=== PATIENT | female | born 1980 | race American Indian/Alaskan Native ===

== ENCOUNTER 2017-08-03 09:06 | Emergency (ER) | payer OTHER ==
--- NOTE | 2017-08-03 10:15 | Emergency Department Report ---
ED HPI - General Chief complaint: Vaginal Bleeding Stated complaint: VAGINAL BLEEDING/ Time Seen by Provider: 08/03/17 10:03 Source: patient Mode of arrival: Ambulatory Limitations: No Limitations - History of Present Illness Initial comments: This is a 37-year-old female nontoxic, well nourished in appearance, no acute signs of distress presents to the ED with c/o of vaginal bleeding x1 day. Patient stated she is about 8 weeks . Patient stated vaginal bleeding occured on 2 times yesterday and returned today x1 time. Patient denies any dizziness, fever, chills, headache, nausea, vomiting, back pain, urinary symptoms, chest pain, shortness of breathe, numbness or tingling. Patient denies any abdominal pain. Patient denies any allergies or PMH. MD Complaint: vaginal bleeding -: days(s) (1) Radiation: none Severity scale (0 -10): 0 Improves with: none Worsens with: none Associated symptoms: vaginal bleeding. denies: nausea/vomiting, vaginal discharge, abdominal pain, dysuria, headache, vision changes, malaise, dysparuenia, rash, seizure, shortness of breath, syncope, weakness Vaginal bleeding: light :: Yes Number of weeks : 8 Pre- care: none - Related Data : 3 Para: 5 Allergies Allergy/AdvReac Type Severity Reaction Status Date / Time No Known Allergies Allergy Unverified 08/03/17 09:19 ED Review of Systems ROS: Stated complaint: VAGINAL BLEEDING/ Other details as noted in HPI Constitutional: denies: chills, fever Eyes: denies: eye pain, eye discharge, vision change ENT: denies: ear pain, throat pain Respiratory: denies: cough, shortness of breath, wheezing Cardiovascular: denies: chest pain, palpitations Endocrine: no symptoms reported Gastrointestinal: denies: abdominal pain, nausea, diarrhea Genitourinary: denies: urgency, dysuria, discharge Musculoskeletal: denies: back pain, joint swelling, arthralgia Skin: denies: rash, lesions Neurological: denies: headache, weakness, paresthesias Psychiatric: denies: anxiety, depression Hematological/Lymphatic: denies: easy bleeding, easy bruising ED Past Medical Hx - Past Medical History Previous Medical History?: No - Surgical History Past Surgical History?: Yes - Social History Smoking Status: Never Smoker Substance Use Type: None ED Physical Exam - General Limitations: No Limitations General appearance: alert, in no apparent distress - Head Head exam: Present: atraumatic, normocephalic - Eye Eye exam: Present: normal appearance Pupils: Present: normal accommodation - ENT ENT exam: Present: normal exam, mucous membranes moist - Neck Neck exam: Present: normal inspection, full ROM. Absent: tenderness, meningismus, lymphadenopathy - Respiratory Respiratory exam: Present: normal lung sounds bilaterally. Absent: respiratory distress, wheezes, rales, rhonchi, stridor, chest wall tenderness, accessory muscle use, decreased breath sounds, prolonged expiratory - Cardiovascular Cardiovascular Exam: Present: regular rate, normal rhythm, normal heart sounds. Absent: bradycardia, tachycardia, irregular rhythm, systolic murmur, diastolic murmur, rubs, gallop - GI/Abdominal GI/Abdominal exam: Present: soft, normal bowel sounds. Absent: distended, tenderness, guarding, rebound, rigid, diminished bowel sounds - Rectal Rectal exam: Present: deferred - Extremities Exam Extremities exam: Present: normal inspection, full ROM, normal capillary refill - Back Exam Back exam: Present: normal inspection, full ROM - Neurological Exam Neurological exam: Present: alert, oriented X3, normal gait - Psychiatric Psychiatric exam: Present: normal affect, normal mood - Skin Skin exam: Present: warm, dry, intact, normal color. Absent: rash ED Course Vital Signs 08/03/17 09:20 Temperature 99.1 F Pulse Rate 93 H Respiratory 18 Rate Blood Pressure 156/93 O2 Sat by Pulse 100 Oximetry - Reevaluation(s) Reevaluation #1: 08/03/17 10:16 Patient is speaking in full sentences with no signs of distress noted. ED Medical Decision Making - Lab Data Result diagrams: 08/03/17 10:13 08/03/17 10:13 - Medical Decision Making This is a 37-year-old female presents with threatened miscarriage. Patient is stable and was examined by me. Normal abdominal exam. US OB obtained and dictated by the radiologist. Quantative serum test obtained. Patient notified of the US report with no questions noted by the patient. Patient was instructed to return in 2 days to follow up with a CODING ASSISTANT or to emergency room for a reevaluation of serum quantative test with possible ultrasound. RH factor positive. Labs within normal limits. Patient was referred to Follow-up with a CODING ASSISTANT in 3-5 days or if symptoms worsen and continue return to emergency room as soon as possible. At time of discharge, the patient does not seem toxic or ill in appearance. No acute signs of distress noted. Patient agrees to discharge treatment plan of care. No further questions noted by the patient. Critical care attestation.: If time is entered above; I have spent that time in minutes in the direct care of this critically ill patient, excluding procedure time. ED Disposition Clinical Impression: Threatened miscarriage Disposition: DC- TO HOME OR SELFCARE Is pt being admited?: No Does the pt Need Aspirin: No Condition: Stable Instructions: Threatened Miscarriage (ED) Additional Instructions: Return to the ED in 48 hours for a repeat HCG quantitative test and possible ultrasound. Follow-up with a CODING ASSISTANT doctor in 2 days or if symptoms worsen and continue return to emergency room as soon as possible. Referrals: PRIMARY CAREMD [Primary Care Provider] - 3-5 Days ISABELLE ARTEAGA MD [Staff Physician] - 3-5 Days [facility] [Provider Group] - 3-5 Days [facility] [Outside] - 3-5 Days Forms: Work/School Release Form(ED)
[2017-08-03 10:43] LABS: Bilirubin,Urine NEG (Negative); Blood,Urine LG (Negative); Color,Urine Yellow (Yellow); Protein,Urine <15 mg/dL mg/dL (Negative); Urobilinogen,Urine < 2.0 mg/dL (<2.0)
[2017-08-03 10:44] LABS: Basophils % (Auto) 0.9 % (0.0-1.8); Eosinophils % (Auto) 0.5 % (0.0-4.3); Hematocrit 34.9 % (30.3-42.9); Hemoglobin 11.8 gm/dl (10.1-14.3); Lymphocytes # (Auto) 1.6 K/mm3 (1.2-5.4); Lymphocytes % (Auto) 31.2 % (13.4-35.0); Mean Corpuscular HGB Conc 34 % (30-34); Mean Corpuscular Hemoglobin 27 pg (28-32); Mean Corpuscular Volume 80 fl (79-97); Monocytes # (Auto) 0.5 K/mm3 (0.0-0.8); Monocytes % (Auto) 9.7 % (0.0-7.3); Platelet Count 218 K/mm3 (140-440); Red Blood Count 4.38 M/mm3 (3.65-5.03); Red Cell Distribution Width 14.4 % (13.2-15.2)
[2017-08-03 11:00] LABS: BUN/Creatinine Ratio 9; Blood Urea Nitrogen 6 mg/dL (7-17); Calcium 8.9 mg/dL (8.4-10.2); Hemolysis Index 5
--- NOTE | 2017-08-03 12:05 | Ultrasound Report ---
ULTRASOUND OB LESS THAN 14 WEEKS FETUS ULTRASOUND OB TRANSVAGINAL History: Vaginal bleeding during . Beta hCG level 209.2. Technique: Transabdominal and transvaginal ultrasound imaging. Findings: The uterus measures 11 x 7 x 6 cm. There is a large submucosal fibroid in the posterior wall measuring up to 6.3 cm in diameter. The endometrium is displaced anteriorly or measures 13 mm on the transvaginal images. No intrauterine is visualized. The right ovary measures 2.7 x 2.1 x 2.7 cm. The right ovary contains a complex area measuring 1.9 cm in greatest diameter which may represent a corpus luteum cyst. Left ovary measures 2.7 x 1.2 x 2.8 cm and demonstrates no focal abnormality. No pelvic fluid collection is identified. Impression: No intrauterine is visualized at this time. This could represent a very early . Please note that spontaneous or ectopic are not excluded. Close interval followup is recommended.
[2017-08-03 12:34] VITALS: BP 142/87
== END 2017-08-03 12:34 | disposition home or self-care (01) ==
LOC: ED 09:06
DX: O20.0 Threatened abortion (principal); Z3A.11 11 weeks gestation of pregnancy
CPT/HCPCS: 36415; 76801; 76817; 80048; 81001; 84702; 85025; 86850; 86900; 86901

== ENCOUNTER 2017-12-27 14:07 | Emergency (ER) | payer SELFPAY ==
--- NOTE | 2017-12-27 14:42 | Emergency Department Report ---
ED Female HPI - General Chief complaint: Vaginal Bleeding Stated complaint: [id number] WKS Time Seen by Provider: 12/27/17 14:33 Source: patient Mode of arrival: Ambulatory Limitations: No Limitations - History of Present Illness Initial comments: Patient is 37 years old female, 5 para 3 with one miscarriage. Patient presented to the ER complaining of vaginal bleeding started 1 hour. Patient also complaining of lower abdominal cramping. Patient stated that she follow up with doctor Per and she had a history of cervical cerclage before. She stated that she talk to Dr. Albarado about it today and he told her that he is probably do that after she is 16 weeks. Patient denied any dizziness, chest pain or shortness of breath. No headache. MD Complaint: vaginal bleeding -: hour(s) Severity scale (0 -10): 3 Quality: cramping - Related Data Allergies Allergy/AdvReac Type Severity Reaction Status Date / Time No Known Allergies Allergy Unverified 08/03/17 09:19 ED Review of Systems ROS: Stated complaint: [id number] WKS Other details as noted in HPI Comment: All other systems reviewed and negative Constitutional: denies: chills, fever Respiratory: denies: cough, orthopnea, shortness of breath, SOB with exertion, SOB at rest, wheezing Cardiovascular: denies: chest pain, palpitations Gastrointestinal: denies: abdominal pain, nausea, vomiting, diarrhea, constipation, hematemesis, melena, hematochezia Genitourinary: denies: urgency, dysuria, frequency, hematuria, discharge Neurological: denies: headache, weakness, numbness, abnormal gait ED Past Medical Hx - Past Medical History Previous Medical History?: Yes Additional medical history: Incompetent cervix, Vaginal delivery x3 - Surgical History Past Surgical History?: No - Social History Smoking Status: Never Smoker Substance Use Type: None ED Physical Exam - General Limitations: No Limitations General appearance: alert, in no apparent distress - Head Head exam: Present: atraumatic, normocephalic, normal inspection - Eye Eye exam: Present: normal appearance, PERRL - ENT ENT exam: Present: normal exam, normal orophraynx, mucous membranes moist - Neck Neck exam: Present: normal inspection, full ROM. Absent: tenderness, meningismus, lymphadenopathy, thyromegaly - Respiratory Respiratory exam: Present: normal lung sounds bilaterally. Absent: respiratory distress, wheezes, rales, rhonchi, stridor, chest wall tenderness, accessory muscle use, decreased breath sounds, prolonged expiratory - Cardiovascular Cardiovascular Exam: Present: regular rate, normal rhythm, normal heart sounds - GI/Abdominal GI/Abdominal exam: Present: soft, normal bowel sounds. Absent: distended, tenderness, guarding, rebound, rigid, diminished bowel sounds, hypoactive bowel sounds, organomegaly, mass, bruit, pulsatile mass, hernia - Extremities Exam Extremities exam: Present: normal inspection, full ROM, normal capillary refill - Back Exam Back exam: Present: normal inspection, full ROM. Absent: CVA tenderness (R), CVA tenderness (L), muscle spasm, paraspinal tenderness, vertebral tenderness, rash noted - Neurological Exam Neurological exam: Present: alert, oriented X3, CN II-XII intact, normal gait, reflexes normal - Skin Skin exam: Present: warm, intact, normal color ED Course Vital Signs 12/27/17 12/27/17 12/27/17 14:11 14:46 15:11 Temperature 98.2 F Pulse Rate 103 H 80 Respiratory 20 19 19 Rate Blood Pressure 171/86 Blood Pressure 136/73 [Right] O2 Sat by Pulse 100 99 100 Oximetry ED Medical Decision Making - Lab Data Result diagrams: 12/27/17 15:30 - Radiology Data Radiology results: report reviewed Referring Physician: CONNOR WATKINS Patient Name: LEANNA LANGE Date of : 1980 Sex: Female Report Date: 2017-12-27 Report Status: Finalized Findings [address] [address] Ultrasound Report Signed Patient: LEANNA LANGE MR#: [id number] : 1980 Acct:[id number] Age/Sex: 37 / F ADM Date: 12/27/17 Loc: ED Attending Dr: Ordering Physician: CONNOR WATKINS Date of Service: 12/27/17 Procedure(s): US OB transvaginal Accession Number(s): [id number] cc: CONNOR WATKINS FINAL REPORT EXAM: US OB TRANSVAGINAL HISTORY: ABDOMINAL PAIN , vaginal bleeding, history of incompetent cervix TECHNIQUE: Two images of the cervix using TRANSVAGINAL technique PRIORS: Ob ultrasound 12/27/2017 FINDINGS: Cervix is closed with 3.63 cm length. IMPRESSION: Closed cervix with 3.63 cm length Transcribed By: CHIQUIS Dictated By: CARIN LORENZ MD Electronically Authenticated By: CARIN LORENZ MD Signed Date/Time: 12/27/17 1724 Referring Physician: CONNOR WATKINS Patient Name: LEANNA LANGE Date of : 1980 Sex: Female Report Date: 2017-12-27 Report Status: [place] [address] Ultrasound Report Signed Patient: LEANNA LANGE MR#: [id number] : 1980 Acct:[id number] Age/Sex: 37 / F ADM Date: 12/27/17 Loc: ED Attending Dr: Ordering Physician: CONNOR WATKINS Date of Service: 12/27/17 Procedure(s): US OB >= 14 weeks Fetus Accession Number(s): [id number] cc: CONNOR WATKINS FINAL REPORT EXAM: US OB gt; = 14 WEEKS FETUS HISTORY: vaginal bleeding, 16 wks TECHNIQUE: Ultrasound evaluation of the gravid uterus PRIORS: None. FINDINGS: There is a single viable intrauterine with documented cardiac activity. Multiple ultrasound measurements are made to determine a composite gestational age. ratios are not calculated. There is no evidence of placenta previa or abruption. The maternal cervix is closed. The quantity of visualized amniotic fluid appears grossly normal. No sonographic abnormality in the visualized portion of the anatomy. Heart rate: 162 beats per minute position: Transverse with head to the maternal left Placental position: Anterior, grade 0 Maternal cervix length: 3.6cm Ultrasound estimated gestational age: 14 weeks 1 day Ultrasound estimated delivery date: 06/26/2018 LMP estimated gestational age: 12 week 6 days LMP estimated delivery date: 07/05/2018 In the posterior aspect of the lower uterine segment and cervix, there is a smoothly marginated nonspecific hypoechoic heterogeneous mass measuring 7.9 x 5.3 x 6.8 cm. This is suggestive of a subserosal fibroid. It is positioned inferior to the level of the gestational sac. Nonspecific simple appearing cyst in left ovary measures 3.8 cm. This may be a corpus luteum. IMPRESSION: Single viable intrauterine with the above parameters Heterogeneous hypoechoic mass posterior to the cervix and lower uterine segment suggestive of large subserosal fibroid Simple appearing cyst in left ovary may be a corpus luteum Transcribed By: CHIQUIS Dictated By: CARIN LORENZ MD Electronically Authenticated By: CARIN LORENZ MD Signed Date/Time: 12/27/171729 DD/ 29 TD/TT: 12/27/171729 DD/ 23 TD/TT: 12/27/171723 - Medical Decision Making Patient is 37 years old female, 5 para 3 with one miscarriage. Patient presented to the ER complaining of vaginal bleeding started 1 hour. Patient also complaining of lower abdominal cramping. Patient stated that she follow up with doctor Per and she had a history of cervical cerclage before. She stated that she talk to Dr. Albarado about it today and he told her that he is probably do that after she is 16 weeks. Patient denied any dizziness, chest pain or shortness of breath. No headache. Ultrasound showed a 14 weeks single fetus, viable. Cervix is closed and at 3.8 cm length. I discussed the patient is Dr. Arun Albarado he stated that patient can be discharged home and to follow-up with him in the office in the next 2-3 days to schedule her cervical cerclage. Critical care attestation.: If time is entered above; I have spent that time in minutes in the direct care of this critically ill patient, excluding procedure time. ED Disposition Clinical Impression: Vaginal bleeding during Disposition: DC-01 TO HOME OR SELFCARE Is pt being admited?: No Condition: Stable Instructions: Abdominal Pain in (ED) Referrals: PRIMARY CARE, [Primary Care Provider] - 3-5 Days ARUN ALBARADO MD [Staff Physician] - 3-5 Days
[2017-12-27 15:51] LABS: Basophils % (Auto) 0.6 % (0.0-1.8); Eosinophils % (Auto) 0.5 % (0.0-4.3); Hematocrit 32.8 % (30.3-42.9); Hemoglobin 10.8 gm/dl (10.1-14.3); Lymphocytes # (Auto) 1.8 K/mm3 (1.2-5.4); Mean Corpuscular HGB Conc 33 % (30-34); Mean Corpuscular Hemoglobin 26 pg (28-32); Mean Corpuscular Volume 80 fl (79-97); Monocytes # (Auto) 0.8 K/mm3 (0.0-0.8); Monocytes % (Auto) 9.7 % (0.0-7.3); Platelet Count 243 K/mm3 (140-440); Red Blood Count 4.08 M/mm3 (3.65-5.03); Red Cell Distribution Width 14.4 % (13.2-15.2)
[2017-12-27 15:56] LABS: Bacteria,Urine 3+ /HPF (Negative); Bilirubin,Urine NEG (Negative); Blood,Urine LG (Negative); Color,Urine Yellow (Yellow); Mucus,Urine FEW /HPF; Protein,Urine <15 mg/dL mg/dL (Negative); Urobilinogen,Urine < 2.0 mg/dL (<2.0)
[2017-12-27 15:58] LABS: RBC,Urine > 182.0 /HPF (0.0-6.0)
--- NOTE | 2017-12-27 17:25 | Ultrasound Report ---
FINAL REPORT EXAM: US OB TRANSVAGINAL HISTORY: ABDOMINAL PAIN , vaginal bleeding, history of incompetent cervix TECHNIQUE: Two images of the cervix using TRANSVAGINAL technique PRIORS: Ob ultrasound 12/27/2017 FINDINGS: Cervix is closed with 3.63 cm length. IMPRESSION: Closed cervix with 3.63 cm length
--- NOTE | 2017-12-27 17:31 | Ultrasound Report ---
FINAL REPORT EXAM: US OB > = 14 WEEKS FETUS HISTORY: vaginal bleeding, 16 wks TECHNIQUE: Ultrasound evaluation of the gravid uterus PRIORS: None. FINDINGS: There is a single viable intrauterine with documented cardiac activity. Multiple ultrasound measurements are made to determine a composite gestational age. ratios are not calculated. There is no evidence of placenta previa or abruption. The maternal cervix is closed. The quantity of visualized amniotic fluid appears grossly normal. No sonographic abnormality in the visualized portion of the anatomy. Heart rate: 162 beats per minute position: Transverse with head to the maternal left Placental position: Anterior, grade 0 Maternal cervix length: 3.6cm Ultrasound estimated gestational age: 14 weeks 1 day Ultrasound estimated delivery date: 06/26/2018 LMP estimated gestational age: 12 week 6 days LMP estimated delivery date: 07/05/2018 In the posterior aspect of the lower uterine segment and cervix, there is a smoothly marginated nonspecific hypoechoic heterogeneous mass measuring 7.9 x 5.3 x 6.8 cm. This is suggestive of a subserosal fibroid. It is positioned inferior to the level of the gestational sac. Nonspecific simple appearing cyst in left ovary measures 3.8 cm. This may be a corpus luteum. IMPRESSION: Single viable intrauterine with the above parameters Heterogeneous hypoechoic mass posterior to the cervix and lower uterine segment suggestive of large subserosal fibroid Simple appearing cyst in left ovary may be a corpus luteum
[2017-12-27 18:03] VITALS: BP 125/67
== END 2017-12-27 18:51 | disposition home or self-care (01) ==
LOC: ED 14:07
DX: O46.92 Antepartum hemorrhage, unspecified, second trimester (principal); O26.892 Other specified pregnancy related conditions, second trimester; Z3A.16 16 weeks gestation of pregnancy
CPT/HCPCS: 36415; 76805; 76817; 81001; 84702; 85025; 86850; 86900; 86901

== ENCOUNTER 2018-06-03 14:02 | Inpatient (IN) | payer SELFPAY ==
[2018-06-03 16:14] LABS: Amorphous Crystals,Urine Few; Bacteria,Urine 2+ /HPF (Negative); Bilirubin,Urine NEG (Negative); Blood,Urine MOD (Negative); Color,Urine Yellow (Yellow); Mucus,Urine FEW /HPF; Urobilinogen,Urine < 2.0 mg/dL (<2.0)
[2018-06-03 16:57] LABS: Basophils % (Auto) 0.5 % (0.0-1.8); Eosinophils % (Auto) 0.4 % (0.0-4.3); Hematocrit 36.4 % (30.3-42.9); Hemoglobin 12.1 gm/dl (10.1-14.3); Lymphocytes # (Auto) 1.6 K/mm3 (1.2-5.4); Lymphocytes % (Auto) 23.9 % (13.4-35.0); Mean Corpuscular HGB Conc 33 % (30-34); Mean Corpuscular Volume 80 fl (79-97); Monocytes # (Auto) 0.6 K/mm3 (0.0-0.8); Monocytes % (Auto) 9.2 % (0.0-7.3); Red Blood Count 4.55 M/mm3 (3.65-5.03); Red Cell Distribution Width 15.1 % (13.2-15.2)
[2018-06-03 17:16] LABS: Alanine Aminotransferase 21 units/L (7-56); Albumin 3.2 g/dL (3.9-5); BUN/Creatinine Ratio 13; Blood Urea Nitrogen 8 mg/dL (7-17); Calcium 8.9 mg/dL (8.4-10.2); Hemolysis Index 29; Uric Acid 6.7 mg/dL (3.5-7.6)
[2018-06-03 17:50] LABS: Platelet Count 128 K/mm3 (140-440)
[2018-06-03] MEDS ORDERED: MAGNESIUM SULFATE 4GM/100ML 4 GM/100 ML BAG IV ONE (17:57)
[2018-06-03] MEDS ORDERED: APRESOLINE IV ONE (17:57)
--- NOTE | 2018-06-03 18:23 | History and Physical Report ---
History of Present Illness Date of examination: 06/03/18 Date of admission: 06/03/18 14:20 Chief complaint: Elevated BP's History of present illness: Pt is a EDC 07/05/18; EGA 35 3 weeks presents from the office fo BP management. BP in office 174/100 and pt denies headaches or blurred vision. She received insufficient care at [facility] since 16 weeks and presented for her 3rd visit today with BP 174/100. She denies history of chronic hypertension and previous was complicated by Eclampsia. records are available and GBS was done today. Past History Past Medical History: no pertinent history Past Surgical History: no surgical history Social history: no significant social history, - Obstetrical History Expected Date of Delivery: 07/05/18 Actual Gestation: 35 Week(s) 3 Day(s) : 6 Medications and Allergies Allergies Allergy/AdvReac Type Severity Reaction Status Date / Time No Known Allergies Allergy Unverified 08/03/17 09:19 Active Meds: Active Medications Magnesium Sulfate (Magnesium Sulfate 40gm/1000ml) 40 gm in 1,000 mls @ 50 m ls/hr IV DIRECT CURLY Review of Systems All systems: negative - Vital Signs Vital signs: Vital Signs Pulse BP 81 180/103 06/03/18 14:41 06/03/18 14:41 Temp Pulse Resp BP Pulse Ox 77 178/99 06/03/18 17:55 06/03/18 17:55 - Physical Exam Breasts: Positive: deferred Cardiovascular: Regular rate Lungs: Positive: Clear to auscultation Abdomen: Positive: normal appearance Genitourinary (Female): Positive: normal external genitalia Uterus: Positive: enlarged Extremities: Positive: normal - Obstetrical FHR: category 1 Uterine Contraction Monitor Mode: External Uterine Contraction Pattern: Absent Results Result Diagrams: 06/03/18 16:30 06/03/18 16:30 Abnormal lab results 06/03/18 06/03/18 06/03/18 Range/Units 15:45 16:30 16:30 MCH 27 L (28-32) pg Plt Count 128 L (140-440) K/mm3 [place] % (Auto) 9.2 H (0.0-7.3) % Sodium 133 L (137-145) mmol/L Carbon Dioxide 20 L (22-30) mmol/L Creatinine 0.6 L (0.7-1.2) mg/dL Glucose 109 H (65-100) mg/dL Alkaline Phosphatase 265 H (35-129) units/L Lactate Dehydrogenase 331 H (91-180) units/L Albumin 3.2 L (3.9-5) g/dL Urine WBC (Auto) 17.0 H (0.0-6.0) /HPF All other labs normal. Ultrasound: report reviewed (BPP 11/05; JAYJAY 11.1 with posterior fibroid 7.2 x 8.1 x 6.8cm) Assessment and Plan - Patient Problems (1) 35 weeks gestation of Onset Date: 06/03/18 Current Visit: Yes Status: Acute Plan to address problem: A: IUP @ 35 3/7 weeks Preeclampsia AMA Uterine fibroid P: Admit to L&D for BP management - Begin IV Magnesium sulfate, IV Hydralazine Obtain PIH labs and 24hr urine for protein Obtain APA consultation (2) Preeclampsia Onset Date: 06/03/18 Current Visit: Yes Status: Acute Qualifiers: Trimester: third trimester Qualified Code(s): O14.93 - Unspecified pre- eclampsia, third trimester
[2018-06-03] MEDS ORDERED: TYLENOL PO PRN (18:28)
[2018-06-03] MEDS ORDERED: ZOFRAN IV PRN (18:28)
[2018-06-03] MEDS ORDERED: COLACE PO PRN (18:28)
[2018-06-03] MEDS ORDERED: LACTATED RINGERS 1,000 ML ONE (18:29)
--- NOTE | 2018-06-03 19:39 | Ultrasound Report ---
PROCEDURE: US OB BPP WO NON-STRESS HISTORY: High blood pressures FINDINGS: Real-time ultrasound of the pelvis was performed by transabdominal technique. Biophysical p rofile was performed. These images demonstrate a live intrauterine gestation with biophysical profile of 8 out of 8. Amniot ic fluid index is 11.1 cm. The fetus lies in cephalic lie. cardiac activity is present 146 bpm. There is a posterior uterine leiomyoma, 7.2 x 8.1 x 6.8 cm which was previously measured on the ultra sound of December 27, 2017 at 7.9 x 5.3 x 6.8 cm. IMPRESSION: Biophysical profile 8 of 8 This document is electronically signed by Braxton Benoit MD., June 03 2018 07:37:23 PM ET
--- NOTE | 2018-06-03 19:39 | Ultrasound Report ---
PROCEDURE: US OB LIMITED HISTORY: high blood pressures FINDINGS: Real-time ultrasound of the pelvis was performed by transabdominal technique. Biophysical p rofile was performed. These images demonstrate a live intrauterine gestation with biophysical profile of 8 out of 8. Amniot ic fluid index is 11.1 cm. The fetus lies in cephalic lie. cardiac activity is present 146 bpm. There is a posterior uterine leiomyoma, 7.2 x 8.1 x 6.8 cm which was previously measured on the ultra sound of December 27, 2017 at 7.9 x 5.3 x 6.8 cm. IMPRESSION: Biophysical profile 8 of 8 This document is electronically signed by Braxton Benoit MD., June 03 2018 07:36:57 PM ET
[2018-06-03] MEDS: MAGNESIUM SULFATE 40GM/1000ML 40 GM/1,000 ML BAG IV SCH (22:40)
[2018-06-03] MEDS ORDERED: AMBIEN PO PRN (22:43)
[2018-06-04] MEDS: LACTATED RINGERS 1,000 ML IV SCH ×2 (03:07→16:46)
[2018-06-04] MEDS: PRENATAL VITAMIN PO SCH (11:00)
[2018-06-04] MEDS: NORMODYNE PO SCH ×2 (11:05→22:12)
--- NOTE | 2018-06-04 12:23 | Progress Note ---
Assessment and Plan - Patient Problems (1) 35 weeks gestation of Onset Date: 06/03/18 Current Visit: Yes Status: Acute Plan to address problem: A: IUP @ 35 4/7 weeks Preeclampsia AMA Uterine fibroid P: Continue BP management - Currently on IV Magnesium sulfate, IV Hydralazine Repeat PIH labs and 24hr urine for protein Awaiting APA consultation (2) Preeclampsia Onset Date: 06/03/18 Current Visit: Yes Status: Acute Qualifiers: Trimester: third trimester Qualified Code(s): O14.93 - Unspecified pre- eclampsia, third trimester Subjective - Subjective Date of service: 06/04/18 Principal diagnosis: IUP @ 35 4/7 weeks; Interval history: Pt is a EDC 07/05/18; EGA 35 4/7 weeks presented from the office fo BP management. BP in office 174/100 and pt denied headaches or blurred vision. She received insufficient care at [facility] since 16 weeks and presented for her 3rd visit yesterday with BP 174/100. She denies history of chronic hypertension and previous was complicated by Eclampsia. records are available and GBS was done yesterday. Today her BP is improved on Labetolol 200mg BID Patient reports: new complaints (nausea and vomiting), movement normal, no loss of fluid, no vaginal bleeding, no contractions Objective - Vital Signs Vital Signs: Vital Signs - 12hr 06/04/18 06/04/18 06/04/18 00:41 01:35 01:41 Temperature 97.6 F Pulse Rate 81 90 Respiratory 16 Rate Blood Pressure 145/83 145/68 O2 Sat by Pulse Oximetry 06/04/18 06/04/18 06/04/18 02:41 03:37 03:43 Temperature 97.2 F L Pulse Rate 89 87 Respiratory 18 Rate Blood Pressure 144/89 148/78 O2 Sat by Pulse Oximetry 06/04/18 06/04/18 06/04/18 04:41 05:42 06:42 Temperature Pulse Rate 83 90 81 Respiratory Rate Blood Pressure 144/70 157/72 158/78 O2 Sat by Pulse Oximetry 06/04/18 06/04/18 06/04/18 07:41 08:41 09:41 Temperature Pulse Rate 88 90 90 Respiratory Rate Blood Pressure 138/70 147/79 150/82 O2 Sat by Pulse Oximetry 06/04/18 06/04/18 06/04/18 10:41 11:05 11:54 Temperature Pulse Rate 95 H 95 H 88 Respiratory Rate Blood Pressure 148/82 148/82 132/75 O2 Sat by Pulse Oximetry 06/04/18 11:55 Temperature Pulse Rate 88 Respiratory Rate Blood Pressure O2 Sat by Pulse 99 Oximetry - Exam Abdomen: Present: normal appearance, soft Uterus: Present: normal FHR: category 1 Uterine Contraction Monitor Mode: External Uterine Contraction Pattern: Absent - Labs Labs: Abnormal Labs 06/03/18 06/03/18 06/03/18 15:45 16:30 16:30 MCH 27 L Plt Count 128 L [place] % (Auto) 9.2 H Sodium 133 L Carbon Dioxide 20 L Creatinine 0.6 L Glucose 109 H Alkaline Phosphatase 265 H Lactate Dehydrogenase 331 H Albumin 3.2 L Urine WBC (Auto) 17.0 H Laboratory Results - last 24 hr 06/03/18 06/03/18 06/03/18 15:45 16:30 16:30 WBC 6.7 RBC 4.55 Hgb 12.1 Hct 36.4 MCV 80 MCH 27 L MCHC 33 RDW 15.1 Plt Count 128 L Lymph % (Auto) 23.9 [place] % (Auto) 9.2 H Eos % (Auto) 0.4 Baso % (Auto) 0.5 Lymph # 1.6 [place] # 0.6 Eos # 0.0 Baso # 0.0 Seg Neutrophils % 66.0 Seg Neutrophils # 4.4 Sodium Potassium Chloride Carbon Dioxide Anion Gap BUN Creatinine Estimated GFR BUN/Creatinine Ratio Glucose Uric Acid Calcium Total Bilirubin AST ALT Alkaline Phosphatase Lactate Dehydrogenase Total Protein Albumin Albumin/Globulin Ratio Urine Color Yellow Urine Turbidity Slightly-cloudy Urine pH 6.0 Ur Specific [place] 1.013 Urine Protein 100 mg/dl Urine Glucose (UA) Neg Urine Ketones Neg Urine Blood Mod Urine Nitrite Neg Urine Bilirubin Neg Urine Urobilinogen < 2.0 Ur Leukocyte Esterase Lg Urine WBC (Auto) 17.0 H Urine RBC (Auto) 18.0 U Epithel Cells (Auto) 9.0 Urine Bacteria (Auto) 2+ Amorphous Crystals Few Urine Mucus Few Blood Type O POSITIVE Antibody Screen Negative 06/03/18 16:30 WBC RBC Hgb Hct MCV MCH MCHC RDW Plt Count Lymph % (Auto) [place] % (Auto) Eos % (Auto) Baso % (Auto) Lymph # [place] # Eos # Baso # Seg Neutrophils % Seg Neutrophils # Sodium 133 L Potassium 4.2 Chloride 100.7 Carbon Dioxide 20 L Anion Gap 17 BUN 8 Creatinine 0.6 L Estimated GFR > 60 BUN/Creatinine Ratio 13 Glucose 109 H Uric Acid 6.7 Calcium 8.9 Total Bilirubin 0.20 AST 27 ALT 21 Alkaline Phosphatase 265 H Lactate Dehydrogenase 331 H Total Protein 6.3 Albumin 3.2 L Albumin/Globulin Ratio 1.0 Urine Color Urine Turbidity Urine pH Ur Specific [place] Urine Protein Urine Glucose (UA) Urine Ketones Urine Blood Urine Nitrite Urine Bilirubin Urine Urobilinogen Ur Leukocyte Esterase Urine WBC (Auto) Urine RBC (Auto) U Epithel Cells (Auto) Urine Bacteria (Auto) Amorphous Crystals Urine Mucus Blood Type Antibody Screen
[2018-06-04] MEDS ORDERED: AMPICILLIN/NS 2 GM/100 ML 2 GM/100 ML BAG IV ONE (12:31)
--- NOTE | 2018-06-04 14:00 | Consultation ---
History of Present Illness Consult date: 06/04/18 Requesting physician: JACKELIN ARTEAGA Reason for consult: gestational hypertension History of present illness: Thank you for your recent consultation regarding the above named patient. As you are aware, this is a 37 year old para [id number] who is currently at 35 weeks As you are likely aware this is a patient that was sent to [facility] office due to elevated blood pressure. Patient indicates that she has NOT had elevated blood pressure during this but she did have preeclampsia with eclampsia in her first (see below) CURRENT PRESENTATION: Her pressures were in the range mildly elevated. HELLP labs obtained have been within normal limits She complains of ONGOING headache Her BP on admission was ~ 142/95. She has been given Labetalol presently. Patient completed a 24 hour urine is not available for review.. The patients most recent blood pressure ELEVATED. PAST OB HISTORY: 2000: at term. BW: uncertain. Complicated by preeclampsia and eclampsia. 2003: at term. BW: uncertain 2009: at term. BW: uncertain VTOP x 2. LABORATORY FINDINGS: SEE hospital chart. Past History Past Medical History: no pertinent history Past Surgical History: no surgical history - Obstetrical History : 6 Medications and Allergies Allergies Allergy/AdvReac Type Severity Reaction Status Date / Time No Known Allergies Allergy Unverified 08/03/17 09:19 Active Meds: Active Medications Acetaminophen (Tylenol) 650 mg PO Q4H PRN PRN Reason: Pain MILD(1-3)/Fever >100.5/FLORES Last Admin: 06/03/18 22:40 Dose: 650 mg Documented by: Docusate Sodium (Colace) 100 mg PO Q12H PRN PRN Reason: Constipation Magnesium Sulfate (Magnesium Sulfate 40gm/1000ml) 40 gm in 1,000 mls @ 50 mls/hr IV DIRECT CURLY Last Admin: 06/03/18 22:40 Dose: 2 gm/hr, 50 mls/hr Documented by: Lactated Ringer's (Lactated Ringers) 1,000 mls @ 125 mls/hr IV DIRECT CURLY Last Admin: 06/04/18 03:07 Dose: 125 mls/hr Documented by: Ampicillin Sodium (Ampicillin/Ns 1 Gm/50 Ml) 1 gm in 50 mls @ 100 mls/hr IV Q6HR CURLY; Protocol Labetalol HCl (Normodyne) 200 mg PO BID [facility] Last Admin: 06/04/18 11:05 Dose: 200 mg Documented by: Multivitamins/Iron/Calcium ( Vitamin) 1 each PO QDAY [facility] Last Admin: 06/04/18 11:00 Dose: 1 each Documented by: Ondansetron HCl (Zofran) 4 mg IV Q6H PRN PRN Reason: Nausea And Vomiting Zolpidem Tartrate (Ambien) 10 mg PO QHS PRN PRN Reason: Insomnia Last Admin: 06/04/18 00:14 Dose: 10 mg Documented by: - Vital Signs Vital signs: Vital Signs Pulse BP 81 180/103 06/03/18 14:41 06/03/18 14:41 Temp Pulse Resp BP Pulse Ox 97.2 F L 87 18 141/86 99 06/04/18 03:37 06/04/18 13:41 06/04/18 03:37 06/04/18 13:41 06/04/18 11:55 Results Result Diagrams: 06/03/18 16:30 06/03/18 16:30 Abnormal lab results 06/03/18 06/03/18 06/03/18 Range/Units 15:45 16:30 16:30 MCH 27 L (28-32) pg Plt Count 128 L (140-440) K/mm3 [place] % (Auto) 9.2 H (0.0-7.3) % Sodium 133 L (137-145) mmol/L Carbon Dioxide 20 L (22-30) mmol/L Creatinine 0.6 L (0.7-1.2) mg/dL Glucose 109 H (65-100) mg/dL Alkaline Phosphatase 265 H (35-129) units/L Lactate Dehydrogenase 331 H (91-180) units/L Albumin 3.2 L (3.9-5) g/dL Urine WBC (Auto) 17.0 H (0.0-6.0) /HPF All other labs normal. Assessment and Plan ASSESSMENT This is a 37 year old patient admitted to rule out preeclampsia. Severe preeclampsia based symptoms and blood pressure. Elevated blood pressure. Rule out preeclampsia with severe features. History of preeclampsia and eclampsia in first . Blood pressures and SYMPTOMS during observation are consistent with SEVERE PREECLAMPSIA. RECOMMENDATIONS: I've indicated to the patient that there are a number of medical complications which would require early delivery as a general rule for any gestation. I've indicated that unexplained vaginal bleeding, spontaneous labor, - induced hypertension and other complications would require delivery before an elective delivery. I've also indicated the recommendations from the [employer] published in the ACOG committee opinion number 560 regarding early term delivery. As well as recent studies from the Journal Obstetrics and Gynecology published in March [address] Rod et al indicate that for chronic hypertension with signs of severe preelcampsia should be delivered after 34 weeks of gestation. Based on the fact that this patient has preeclampsia and new onset neurological symptoms as well as elevated systolic blood pressure we would recommend DELIVERY of this rather than continued expectant management. REFERENCE: Medically indicated late- and early-term deliveries. Committee Opinion No. 560. [employer]. Obstet Gynecol 2013;121:84558. Would proceed as follows: * Given the current findings we would recommend delivery for this patient. * Agree with Labetalol for short term control of blood pressure. * Consider magnesium sulfate for eclampsia prophylaxis particularly due to past history of eclampsia. * At present; there is no indication for completion of the 24 hour urine. * In a patient with MILD preeclampsia we recommend DELIVERY at 37 weeks. * In a patient with SEVERE preeclampsia we recommend DELIVERY either AT DIAG NOSIS or at 34 weeks gestation. * Reference: REFERENCE: Medically indicated late- and early-term deliveries. Committee Opinion No. 560. [employer]. Obstet Gynecol 2013;121:61057. * Accordingly, we would recommend DELIVERY for this patient. * We would recommend augmentation / induction of labor with CS for a change in status or decompensation during the intrapartum period. Thank you for allowing us to participate in the care of this patient. We look forward to the opportunity to assist in her continued management. If you have any questions, we may be reached [phone] Sruthi Foreman M.D.
[2018-06-04 14:31] LABS: Alanine Aminotransferase 22 units/L (7-56); BUN/Creatinine Ratio 9; Blood Urea Nitrogen 6 mg/dL (7-17); Calcium 7.8 mg/dL (8.4-10.2); Hemolysis Index 9
[2018-06-04] MEDS: MAGNESIUM SULFATE 40GM/1000ML 40 GM/1,000 ML BAG IV SCH ×2 (16:53→22:12)
[2018-06-04] MEDS ORDERED: PITOCin/NS 30 UNIT/500ML 30 UNITS/500 ML BAG IV SCH (17:00)
[2018-06-04] MEDS ORDERED: APRESOLINE IV ONE (17:25)
[2018-06-04] MEDS ORDERED: PEPCID IV SCH (17:49)
[2018-06-04] MEDS ORDERED: REGLAN IV SCH (17:49)
[2018-06-04] MEDS ORDERED: BICITRA PO SCH (17:49)
--- NOTE | 2018-06-04 17:49 | Event Note ---
Date: 06/04/18 [facility] consultation note reviewed with pt. She desires a C Section instead of pitocin induction of labor. Will proceed with a Primary C Section for Severe Preeclampsia.
[2018-06-04] MEDS ORDERED: ANCEF/STERILE WATER 2 GM/20 ML 2 GM/20 ML SYRINGE IV NR (18:00)
[2018-06-04] MEDS ORDERED: PITOCin/NS 20 UNIT/1000ML DRIP 20 UNITS/1,000 ML BAG IV SCH (18:00)
[2018-06-04] MEDS ORDERED: LACTATED RINGERS 1,000 ML IV SCH (18:00)
[2018-06-04] MEDS ORDERED: AMPICILLIN/NS 1 GM/50 ML 1 GM/50 ML BAG IV SCH (18:00)
--- NOTE | 2018-06-04 18:17 | Anesthesia Consultation ---
Anesthesia Consult and Med Hx Date of service: 06/04/18 - Airway Anesthetic Teeth Evaluation: Good ROM Head & Neck: Adequate Mental/Hyoid Distance: Adequate Mallampati Class: Class I Intubation Access Assessment: Good - Pulmonary Exam CTA: Yes - Cardiac Exam Cardiac Exam: RRR - Pre-Operative Health Status ASA Pre-Surgery Classification: ASA3 Proposed Anesthetic Plan: Epidural - Pre-Anesthesia Comment Pre-Anesthesia Comments: Pre-eclamptic - Pulmonary Hx Smoking: No Hx Asthma: No COPD: No Hx Pneumonia: No - Cardiovascular System Hx Hypertension: No - Central Nervous System Hx Seizures: No Hx Psychiatric Problems: No - Endocrine Hx Renal Disease: No Hx End Stage Renal Disease: No Hx Insulin Dependent Diabetes: No Hx Non-Insulin Dependent Diabetes: No Hx Hypothyroidism: No Hx Hyperthyroidism: No - Hematic Hx Anemia: No Hx Sickle Cell Disease: No - Other Systems Hx Alcohol Use: No Hx Cancer: No Hx Obesity: Yes
[2018-06-04] MEDS ORDERED: SUBLIMAZE ONE (19:04)
[2018-06-04] MEDS ORDERED: SENSORCAINE/DEXTR 0.75-8.25% INFILTRATI ONE (19:04)
[2018-06-04] MEDS ORDERED: ASTRAMORPH PF 10MG/10ML ONE (19:04)
[2018-06-04] MEDS ORDERED: WATER FOR IRRIG STERILE IR ONE (19:20)
[2018-06-04] MEDS ORDERED: NACL 0.9% IR ONE (19:20)
[2018-06-04] MEDS: PITOCin/NS 20 UNIT/1000ML DRIP 20 UNITS/1,000 ML BAG IV SCH ×2 (20:02→21:27)
[2018-06-04] MEDS ORDERED: NEO SYNEPHRINE/NS Syringe(OR USE) IV ONE (20:22)
--- NOTE | 2018-06-04 20:34 | Operative Report ---
Operative Report Operative Report: Date of procedure: 06/04/2018 Pre-operative diagnosis: 1. Intrauterine at 35-4/7 weeks 2. Severe preeclampsia 3. Advanced maternal age 4. Fibroid uterus Post-operative diagnosis: Same Procedure name(s): Primary low transverse section Surgeon: Arun Albarado MD [employer] Worker: None Anesthesia: Spinal anesthesia by Dr. Smith EBL: 650 mL's Findings: A 2294 g female infant Apgars 8 at 1 minute and 8 at 5 minutes. Clear amniotic fluid. Uterus with a large posterior uterine fibroid. Normal tubes and ovaries bilaterally. Procedure: After the patient was prepped and draped in usual sterile fashion, and after satisfactory level of epidural anesthesia was obtained, the skin knife was used to make a transverse skin incision. The incision was excised down to layer of the fascia, which was nicked in the midline and extended laterally using the Bovie cautery. The rectus muscles were dissected off the rectus fascia both superiorly and inferiorly. The rectus bellies in the midline, and the peritoneum was entered under direct visualization. The peritoneal incision was extended superiorly and inferiorly. A bladder flap was created and the bladder blade was then placed. The uterus was scored in a curvilinear linear fashion, entered in the midline revealing clear amniotic fluid. The infant's head was delivered onto the surgical field, and the oropharynx and nasopharynx were bulb suctioned. The rest of the infant's body was delivered, cord was doubly clamped and cut and the infant was handed to the waiting respiratory team. Cord blood was then obtained. The placenta was manually removed from the uterus, and the uterus removed from its normal anatomi raquel position. After gentle uterine lavage, the incision was inspected and found to be without extensions. It was then closed in 2 layers using 0 Vicryl suture in a running interlocking fashion, the second layer imbricating the first. After good hemostasis was achieved, copious amounts or irrigation was performed, and the gutters were suctioned free of blood and blood clots. Tisseel sealant was sprayed across the uterine incision. The uterus which had a large 10 x 10 cm posterior uterine fibroid was then returned to its normal anatomical position, and after excellent hemostasis assured, the peritoneum was re- approximated using 3-0 Vicryl suture in a running interlocking fashion, and then the rectus muscles were re-approximated using 3-0 Vicryl suture in a [id number] configuration. The fascia was then re-approximated using 0 Vicryl suture in running interlocking fashion. The subcutaneous layer was made hemostatic using Bovie cautery, the Tisseel sealant was sprayed across the fascial incision and the skin edges re-approximated using 4-0 Vicryl suture in a sub-cuticular fashion. Patient tolerated the procedure well was transported to recovery in stable condition.
[2018-06-04] MEDS ORDERED: TUCKS PAD TP PRN (20:41)
[2018-06-04] MEDS ORDERED: NARCAN 0.4 MG/1 ML IV PRN (20:41)
[2018-06-04] MEDS ORDERED: MILK OF MAGNESIA PO PRN (20:41)
[2018-06-04] MEDS ORDERED: SENOKOT PO PRN (20:41)
[2018-06-04] MEDS ORDERED: MYLICON PO PRN (20:41)
[2018-06-04] MEDS ORDERED: LANSINOH TP PRN (20:41)
[2018-06-04] MEDS ORDERED: TORADOL IV PRN (20:41)
[2018-06-04] MEDS ORDERED: SODIUM CHLORIDE FLUSH SYRINGE 10 ML IV NR (21:00)
[2018-06-04] MEDS ORDERED: D5LR 1,000 ML IV SCH (21:00)
[2018-06-05] MEDS: ANCEF/NS 1 GM/50 ML 1 GM/50 ML BAG IV SCH ×2 (04:13→12:00)
[2018-06-05] MEDS ORDERED: M-M-R II VACCINE SUB-Q ONE (06:00)
[2018-06-05] MEDS ORDERED: BOOSTRIX IM ONE (06:00)
[2018-06-05 08:31] LABS: Hematocrit 35.1 % (30.3-42.9); Hemoglobin 11.5 gm/dl (10.1-14.3)
[2018-06-05] MEDS ORDERED: LACTATED RINGERS 1,000 ML ONE ×2 (09:02→10:33)
--- NOTE | 2018-06-05 09:55 | Progress Note ---
Assessment and Plan - Patient Problems (1) 35 weeks gestation of Onset Date: 06/03/18 Current Visit: Yes Status: Resolved (2) Preeclampsia Onset Date: 06/03/18 Current Visit: Yes Status: Chronic Qualifiers: Trimester: third trimester Qualified Code(s): O14.93 - Unspecified pre- eclampsia, third trimester (3) Status post section Onset Date: 06/05/18 Current Visit: Yes Status: Resolved Plan to address problem: A: S/P C Section - POD #1 Doing well Preeclampsia - on IV Magnesium sulfate x 24hr and PO Labetolol 200mg BID P: Continue RPOC D/C IV Magnesium sulfate at 8pm and transfer to floor if remains stable Subjective - Subjective Date of service: 06/05/18 Principal diagnosis: s/p C Section - POD #1; Preeclampsia Interval history: Pt is feeling drowsy on IV Magnesium sulfate and on Labetolol 200mg BID. She is tolerating a liquid diet without nausea or vomiting. BP's still elevated 168/91 Patient reports: appetite normal, voiding normally, pain well controlled, nauseated, no flatus, no ambulating normally : doing well, bottle feeding Objective - Vital Signs Latest vital signs: Vital Signs Temp Pulse Resp BP BP Pulse Ox 06/05/18 09:46 81 99 06/05/18 09:40 77 98 06/05/18 09:35 81 100 06/05/18 09:30 78 100 06/05/18 09:25 78 99 06/05/18 09:20 77 100 06/05/18 09:15 79 99 06/05/18 09:10 74 99 06/05/18 09:05 79 99 06/05/18 09:02 81 163/83 06/05/18 09:00 86 98 06/05/18 08:55 72 98 06/05/18 08:50 75 97 06/05/18 08:45 73 99 06/05/18 08:40 72 99 06/05/18 08:35 74 99 06/05/18 08:30 72 99 06/05/18 08:25 71 99 06/05/18 08:20 72 99 06/05/18 08:15 72 98 06/05/18 08:10 72 99 06/05/18 08:05 77 99 06/05/18 08:02 75 158/89 06/05/18 08:00 76 99 06/05/18 07:55 70 99 06/05/18 07:50 80 99 06/05/18 07:45 76 99 06/05/18 07:40 72 99 06/05/18 07:35 74 99 06/05/18 07:30 73 99 06/05/18 07:25 74 99 06/05/18 07:20 71 99 06/05/18 07:15 72 99 06/05/18 07:10 80 99 06/05/18 07:05 74 97 06/05/18 07:02 72 168/91 06/05/18 07:00 69 98 06/05/18 06:55 69 97 06/05/18 06:50 67 98 06/05/18 06:45 70 99 06/05/18 06:40 72 98 06/05/18 06:35 69 98 06/05/18 06:30 70 97 06/05/18 06:25 73 99 06/05/18 06:22 67 177/92 06/05/18 06:21 71 193/99 06/05/18 06:20 71 99 06/05/18 06:15 66 99 06/05/18 06:10 65 99 06/05/18 06:05 70 99 06/05/18 06:02 68 176/92 06/05/18 06:00 69 99 06/05/18 05:55 72 99 06/05/18 05:50 73 98 06/05/18 05:45 67 99 06/05/18 05:40 72 99 06/05/18 05:35 69 98 06/05/18 05:30 71 99 06/05/18 05:25 71 98 06/05/18 05:20 74 98 06/05/18 05:15 69 99 06/05/18 05:10 69 99 06/05/18 05:05 71 100 06/05/18 05:02 68 180/97 06/05/18 05:00 73 100 06/05/18 04:55 70 100 06/05/18 04:50 67 100 06/05/18 04:45 70 100 06/05/18 04:40 66 99 06/05/18 04:35 69 100 06/05/18 04:30 71 100 06/05/18 04:29 76 183/85 06/05/18 04:25 85 100 06/05/18 04:20 72 100 06/05/18 04:15 72 100 06/05/18 04:10 89 100 06/05/18 04:05 68 100 06/05/18 04:02 69 166/88 06/05/18 04:00 67 100 06/05/18 03:55 69 100 06/05/18 03:50 68 100 06/05/18 03:45 65 100 06/05/18 03:40 69 100 06/05/18 03:35 66 100 06/05/18 03:30 68 100 06/05/18 03:25 70 100 06/05/18 03:20 71 100 06/05/18 03:15 75 99 06/05/18 03:10 77 100 06/05/18 03:05 67 98 06/05/18 03:02 69 149/73 06/05/18 03:00 65 98 06/05/18 02:55 65 98 06/05/18 02:50 66 98 06/05/18 02:45 66 98 06/05/18 02:40 69 100 06/05/18 02:35 67 99 06/05/18 02:30 67 99 06/05/18 02:25 69 100 06/05/18 02:20 70 99 06/05/18 02:15 68 99 06/05/18 02:10 72 99 06/05/18 02:05 67 100 06/05/18 02:02 67 168/90 06/05/18 02:00 78 98 06/05/18 01:55 67 98 06/05/18 01:50 67 98 06/05/18 01:45 65 97 06/05/18 01:40 67 98 06/05/18 01:35 70 97 06/05/18 01:30 70 98 06/05/18 01:25 69 98 06/05/18 01:20 71 98 06/05/18 01:15 67 99 06/05/18 01:10 67 99 06/05/18 01:05 74 97 06/05/18 01:02 68 163/78 06/05/18 01:00 72 97 06/05/18 00:55 73 99 06/05/18 00:50 71 98 06/05/18 00:45 67 98 06/05/18 00:40 66 98 06/05/18 00:35 71 97 06/05/18 00:30 66 98 06/05/18 00:25 67 98 06/05/18 00:20 69 98 06/05/18 00:15 68 98 06/05/18 00:10 73 98 06/05/18 00:05 73 98 06/05/18 00:02 71 174/91 06/05/18 00:00 77 97 06/04/18 23:55 70 100 06/04/18 23:50 70 100 06/04/18 23:45 71 98 06/04/18 23:44 70 169/93 06/04/18 23:43 71 176/93 06/04/18 23:40 77 99 06/04/18 23:35 70 99 06/04/18 23:30 77 98 06/04/18 23:25 69 98 06/04/18 23:20 71 98 06/04/18 23:15 77 99 06/04/18 23:10 70 99 06/04/18 23:05 68 99 06/04/18 23:02 74 160/104 06/04/18 23:00 68 99 06/04/18 22:55 69 98 06/04/18 22:50 70 98 06/04/18 22:45 72 98 06/04/18 22:40 74 98 06/04/18 22:35 70 98 06/04/18 22:30 67 98 06/04/18 22:25 67 99 06/04/18 22:20 74 99 06/04/18 22:14 68 18 147/81 06/04/18 22:12 68 147/81 06/04/18 22:02 68 147/81 06/04/18 21:41 97.7 F 69 18 133/78 97 06/04/18 21:27 69 17 115/73 97 06/04/18 21:12 71 18 108/60 97 06/04/18 20:57 70 19 101/55 95 06/04/18 20:42 97.7 F 74 18 97/48 94 06/04/18 19:05 96 H 124/61 06/04/18 19:04 97 H 128/67 06/04/18 18:50 93 H 130/64 03/07/19 18:36 108 H 132/62 03/07/19 18:05 98 H 143/80 06/04/18 17:43 100 H 187/92 06/04/18 16:44 84 169/96 06/04/18 15:41 86 164/84 06/04/18 15:33 98.8 F 20 100 06/04/18 14:58 85 154/90 06/04/18 14:43 85 163/96 06/04/18 14:41 85 159/91 06/04/18 13:41 87 141/86 06/04/18 13:00 22 100 06/04/18 12:41 83 146/92 06/04/18 11:55 97.4 F L 88 20 100 06/04/18 11:54 88 132/75 06/04/18 11:05 95 H 148/82 06/04/18 10:41 95 H 148/82 Intake and Output 06/04/18 06/05/18 06/05/18 22:59 06:59 14:59 Intake Total 3202.083 360 Output Total 730 800 Balance 2472.083 -440 Intake: IV 2962.083 Lactated Ringers 1,000 ml 131.25 @ 125 mls/hr IV DIRECT CURLY Rx#:[id number] MAGNESIUM SULFATE 40GM/ 1176.666 1000ML 40 gm In 1,000 ml @ 2 GM/HR 50 mls/hr IV DIRECT CURLY Rx#:[id number] PITOCin/NS 20 UNIT/1000ML 354.167 DRIP 20 units In 1,000 ml @ 250 mls/hr IV DIRECT CURLY Rx#:[id number] Oral 240 360 Output: Urine 730 800 Indwelling Catheter 450 800 Other: Total, Intake Amount 240 240 Total, Output Amount 100 400 Estimated Blood Loss 650 - Exam Cardiovascular: Present: Regular rate Lungs: Present: Clear to auscultation Abdomen: Present: normal appearance, soft Uterus: Present: normal, firm, fundal height below umbilicus Extremities: Present: normal Incision: Present: normal, dry, intact - Labs Labs: Abnormal lab results 06/04/18 06/05/18 06/05/18 Range/Units 13:35 00:55 05:41 Sodium 131 L (137-145) mmol/L Carbon Dioxide 18 L (22-30) mmol/L BUN 6 L (7-17) mg/dL Calcium 7.8 L (8.4-10.2) mg/dL Magnesium 5.40 H 5.40 H (1.7-2.3) mg/dL Alkaline Phosphatase 273 H (35-129) units/L Total Protein 6.1 L (6.3-8.2) g/dL Albumin 3.0 L (3.9-5) g/dL Laboratory Results - last 24 hr 06/04/18 06/05/18 06/05/18 13:35 00:55 05:41 Hgb Hct Sodium 131 L Potassium 4.1 Chloride 100.2 Carbon Dioxide 18 L Anion Gap 17 BUN 6 L Creatinine 0.7 Estimated GFR > 60 BUN/Creatinine Ratio 9 Glucose 85 Calcium 7.8 L Magnesium 5.40 H 5.40 H Total Bilirubin 0.20 AST 27 ALT 22 Alkaline Phosphatase 273 H Total Protein 6.1 L Albumin 3.0 L Albumin/Globulin Ratio 1.0 06/05/18 08:26 Hgb 11.5 Hct 35.1 Sodium Potassium Chloride Carbon Dioxide Anion Gap BUN Creatinine Estimated GFR BUN/Creatinine Ratio Glucose Calcium Magnesium Total Bilirubin AST ALT Alkaline Phosphatase Total Protein Albumin Albumin/Globulin Ratio
[2018-06-05] MEDS: NORMODYNE PO SCH ×2 (10:00→22:29)
[2018-06-05] MEDS: FEOSOL PO SCH (10:36)
[2018-06-05] MEDS: PRENATAL VITAMIN PO SCH (10:37)
[2018-06-05] MEDS ORDERED: APRESOLINE IV ONE (16:07)
[2018-06-05] MEDS: IBUPROFEN PO PRN (22:31)
[2018-06-06] MEDS: PERCOCET 5/325 PO PRN ×3 (01:21→20:18)
[2018-06-06] MEDS: IBUPROFEN PO PRN ×3 (06:23→20:17)
--- NOTE | 2018-06-06 10:11 | Progress Note ---
Assessment and Plan - Patient Problems (1) 35 weeks gestation of Onset Date: 06/03/18 Current Visit: Yes Status: Resolved (2) Preeclampsia Onset Date: 06/03/18 Current Visit: Yes Status: Chronic Qualifiers: Trimester: third trimester Qualified Code(s): O14.93 - Unspecified pre- eclampsia, third trimester (3) Status post section Onset Date: 06/05/18 Current Visit: Yes Status: Resolved Plan to address problem: A: S/P C Section - POD #2 Doing well Preeclampsia - improved on PO Labetolol 200mg BID P: Continue RPOC Anticipate discharge tomorrow. Subjective - Subjective Date of service: 06/06/18 Principal diagnosis: s/p C Section - POD #2; Preeclampsia Interval history: Pt is well without complaints. Bleeding improved. She is tolerating a reg diet without nausea or vomiting, ambulating and voiding without difficulty. BP's improved 146/73 on Labetolol 200mg BID. Patient reports: appetite normal, voiding normally, pain well controlled, flatus, ambulating normally, no dizzy ambulation, no nauseated : doing well, bottle feeding Objective - Vital Signs Latest vital signs: Vital Signs Temp Pulse Resp BP BP Pulse Ox 06/06/18 07:05 18 06/06/18 06:23 18 06/06/18 04:21 98.5 F 74 20 146/73 96 06/06/18 02:21 18 06/06/18 01:21 18 06/05/18 23:31 18 06/05/18 22:31 18 06/05/18 22:29 79 156/84 06/05/18 21:28 99 F 79 18 156/84 06/05/18 20:40 76 98 06/05/18 20:35 86 98 06/05/18 20:30 86 99 06/05/18 20:25 79 99 06/05/18 20:20 85 99 06/05/18 20:15 76 99 06/05/18 20:10 78 98 06/05/18 20:05 83 98 06/05/18 20:02 86 139/65 06/05/18 20:00 81 98 06/05/18 19:55 80 98 06/05/18 19:50 78 98 06/05/18 19:45 78 98 06/05/18 19:40 78 98 06/05/18 19:35 84 99 06/05/18 19:30 81 99 06/05/18 19:25 79 99 06/05/18 19:20 79 98 06/05/18 19:15 72 98 06/05/18 19:10 81 96 06/05/18 19:05 80 96 06/05/18 19:02 83 152/82 06/05/18 19:00 79 97 06/05/18 18:55 73 97 06/05/18 18:50 75 97 06/05/18 18:45 84 97 06/05/18 18:40 72 97 06/05/18 18:35 77 97 06/05/18 18:30 77 96 06/05/18 18:25 80 98 06/05/18 18:20 75 97 06/05/18 18:15 77 98 06/05/18 18:10 86 99 06/05/18 18:05 82 100 06/05/18 18:02 82 136/72 06/05/18 18:00 79 100 06/05/18 17:55 80 100 06/05/18 17:50 80 100 06/05/18 17:45 83 99 06/05/18 17:40 75 97 06/05/18 17:35 79 99 06/05/18 17:30 78 100 06/05/18 17:25 80 100 06/05/18 17:20 77 100 06/05/18 17:15 83 100 06/05/18 17:10 83 100 06/05/18 17:05 86 100 06/05/18 17:02 85 130/78 06/05/18 16:10 79 180/90 06/05/18 16:02 79 180/90 06/05/18 15:30 74 175/91 06/05/18 15:02 72 182/92 06/05/18 14:02 72 174/92 06/05/18 14:01 75 99 06/05/18 13:56 79 97 06/05/18 13:54 98.4 F 06/05/18 13:51 85 99 06/05/18 13:46 72 98 06/05/18 13:41 72 98 06/05/18 13:36 74 99 06/05/18 13:31 73 99 06/05/18 13:26 70 99 06/05/18 13:21 72 99 06/05/18 13:16 69 99 06/05/18 13:11 73 99 06/05/18 13:06 73 97 06/05/18 13:02 71 159/91 06/05/18 13:01 70 98 06/05/18 12:56 77 98 06/05/18 12:51 77 98 06/05/18 12:46 71 99 06/05/18 12:41 73 99 06/05/18 12:36 83 97 06/05/18 12:31 70 99 06/05/18 12:26 71 98 06/05/18 12:21 71 98 06/05/18 12:16 70 98 06/05/18 12:11 67 99 06/05/18 12:06 70 98 06/05/18 12:02 72 167/93 06/05/18 12:01 69 99 06/05/18 11:56 73 98 06/05/18 11:51 69 99 06/05/18 11:46 69 98 06/05/18 11:41 71 99 06/05/18 11:36 69 99 06/05/18 11:31 73 99 06/05/18 11:26 69 100 06/05/18 11:21 79 99 06/05/18 11:16 70 98 06/05/18 11:11 67 98 06/05/18 11:06 68 99 06/05/18 11:02 71 169/95 06/05/18 11:01 71 99 06/05/18 10:56 71 99 06/05/18 10:51 70 99 06/05/18 10:46 70 99 06/05/18 10:41 69 100 06/05/18 10:36 71 100 06/05/18 10:31 70 100 06/05/18 10:26 72 100 06/05/18 10:21 73 100 06/05/18 10:16 81 100 06/05/18 10:11 75 99 Intake and Output 06/05/18 06/06/18 06/06/18 22:59 06:59 14:59 Intake Total 240 600 Output Total 1640 800 Balance -1400 -200 Intake: Oral 360 Intake, Free Water 240 240 Output: Urine 1640 800 Indwelling Catheter 1640 Void 800 Other: Total, Intake Amount 120 Total, Output Amount 300 800 - Exam Abdomen: Present: normal appearance, soft Uterus: Present: normal, firm, fundal height below umbilicus Extremities: Present: normal Incision: Present: normal, dry, intact - Labs Labs: Abnormal lab results 06/05/18 06/05/18 Range/Units 13:04 18:24 Magnesium 5.80 H 5.80 H (1.7-2.3) mg/dL
[2018-06-06] MEDS: PRENATAL VITAMIN PO SCH (10:18)
[2018-06-06] MEDS: FEOSOL PO SCH (10:18)
[2018-06-06] MEDS: NORMODYNE PO SCH ×2 (10:18→22:20)
[2018-06-07] MEDS: IBUPROFEN PO PRN ×2 (05:23→12:12)
[2018-06-07] MEDS: PERCOCET 5/325 PO PRN (05:23)
[2018-06-07] MEDS: NORMODYNE PO SCH (08:29)
[2018-06-07] MEDS: NORCO 5/325 PO PRN ×2 (08:29→14:02)
--- NOTE | 2018-06-07 10:29 | Progress Note ---
Assessment and Plan - Patient Problems (1) 35 weeks gestation of Onset Date: 06/03/18 Current Visit: Yes Status: Resolved (2) Preeclampsia Onset Date: 06/03/18 Current Visit: Yes Status: Chronic Qualifiers: Trimester: third trimester Qualified Code(s): O14.93 - Unspecified pre- eclampsia, third trimester (3) Status post section Onset Date: 06/05/18 Current Visit: Yes Status: Resolved Plan to address problem: A: S/P C Section - POD #3 Doing well Preeclampsia - improved on PO Labetolol 200mg BID P: May go home today. Subjective - Subjective Date of service: 06/07/18 Principal diagnosis: s/p C Section - POD #3; Preeclampsia Interval history: Pt is well without complaints. She is tolerating a reg diet without nausea or vomiting, ambulating and voiding without difficulty. BP's improved 157/82 on Labetolol 200mg BID. She denies headaches or blurred vision. Patient reports: appetite normal, voiding normally, pain well controlled, flatus, ambulating normally, no dizzy ambulation, no nauseated [place]: doing well, bottle feeding Objective - Vital Signs Latest vital signs: Vital Signs Temp Pulse Resp BP BP Pulse Ox 06/07/18 09:37 76 184/88 06/07/18 08:29 75 16 157/82 06/07/18 08:20 98 F 75 18 157/82 06/07/18 06:23 18 06/07/18 05:23 18 06/07/18 03:21 99.0 F 81 20 159/83 97 06/06/18 22:20 73 164/78 06/06/18 21:18 18 06/06/18 21:17 18 06/06/18 20:18 18 06/06/18 20:17 18 06/06/18 15:55 98.2 F 70 20 163/90 Intake and Output 06/06/18 06/07/18 06/07/18 21:59 06:59 14:59 Intake Total 120 Output Total Balance 120 Intake: Oral 120 Intake, Free Water Output: Urine Void Other: Total, Intake Amount 120 Total, Output Amount # Voids Void 1 - Exam Abdomen: Present: normal appearance, soft Uterus: Present: normal, firm, fundal height below umbilicus Extremities: Present: normal Incision: Present: normal, dry, intact
--- NOTE | 2018-06-07 10:40 | Discharge Summary ---
Providers - Providers Date of Admission: 06/03/18 18:28 Date of discharge: 06/07/18 Attending physician: JACKELIN ARTEAGA 06/03/18 20:14 Consult to Physician [CONS] Routine Comment: Consulting Provider: RICARDO NAQVI Physician Instructions: Reason For Exam: IUP @ 35 weeks; Preeclampsia Primary care physician: JACKELIN ARTEAGA Hospitalization Reason for admission: IUP - , observation, other (IUP @ 35 3/7 weeks; Chronic hypertension with superimposed preeclampsia) Delivery: Procedure: section, primary low transverse Episiotomy: none Laceration: none Incision: normal, dry, intact Other procedures: none complications: none Discharge diagnosis: delivery baby: female Hospital course: Pt is a EDC 07/05/18; EGA 35 3/7 weeks who presented from the office fo BP management. BP in office 174/100 and pt denied headaches or blurred vision. She received insufficient care at [facility] since 16 weeks and presented for her 3rd visit with BP 174/100. She denies history of chronic hypertension and previous was complicated by Eclampsia. She was admitted and begun on IV Magnesium sulfate, IV Hydralazine and PO Labetolol for BP control. [facility] was consulted and they recommended delivery, and pt wanted a C section for delivery. She underwent an uncomplicated C Section and delivered a viable 2294gm female . She remained on IV Magnesium sulfate x 24hrs and BP's were controlled on PO Labetolol 200mg BID. By POD #2 she was tolerating a reg diet without nausea or vomiting, ambulating and voiding without difficulty, and was therefore discharged to home on POD #3 in stable condition. She will follow up in the office in 1 week for BP check. Condition at discharge: Good Disposition: DC-01 TO HOME OR SELFCARE - Discharge Diagnoses (1) 35 weeks gestation of Status: Resolved (2) Preeclampsia Status: Chronic Qualifiers: Trimester: third trimester Qualified Code(s): O14.93 - Unspecified pre- eclampsia, third trimester (3) Status post section Status: Resolved Plan - Discharge Medications Prescriptions: Ferrous Sulfate [Feosol 325 MG tab] 325 mg PO QDAY #60 tablet Ibuprofen [Motrin 800 MG tab] 800 mg PO Q6H PRN #30 tablet PRN Reason: Pain, Mild (1-3) HYDROcodone/APAP 5-325 [[place] 5-325 mg TAB] 1 each PO Q4H PRN #30 tablet PRN Reason: Pain, Moderate (4-6) Labetalol [Normodyne TAB] 200 mg PO BID #60 tablet Vit-Fe Fumar-FA [ Vitamin] 1 each PO QDAY #30 tablet - Provider Discharge Summary Activity: routine, no sex for 6 weeks, no heavy lifting 4 weeks, no strenuous exercise Diet: routine Instructions: routine Additional instructions: [] Smoking cessation referral if applicable(refer to patient education folder for contact #) [] Refer to [facility] Booklet Call your doctor immediately for: * Fever > 100.5 * Heavy vaginal bleeding ( >1 pad per hour) * Severe persistent headache * Shortness of breath * Reddened, hot, painful area to leg or breast * Drainage or odor from incision. * Keep incision clean and dry at all times and follow doctor's instructions regarding bathing/showering Follow up in the office in 1 week for BP check - Follow up plan Follow up: JACKELIN ARTEAGA MD [Primary Care Provider] - 7 Days
[2018-06-07] MEDS: FEOSOL PO SCH (10:53)
[2018-06-07] MEDS: PRENATAL VITAMIN PO SCH (10:53)
[2018-06-07 16:47] VITALS: BP 169/77
--- NOTE | 2018-06-07 16:48 | Progress Note ---
Subjective Date of service: 06/04/18 (Pt c/o posterior FLORES upon sitting up and moving around. Pt evaulated for PDPH. Pt does seem to exhibit sign of a PDPH but is able to perform ADLs and care for baby. Pts states pain gets better with main meds and resting. I instructed her on conservative measures as well as a blood patch option. Pt wants to proceed with conservative measures at this time. I stressed the importance of hydration, caffeine, rest and pain meds. if intolerable, instructed to come back in for a blood patch. ) Principal diagnosis: s/p C Section - POD #3; Preeclampsia Objective - Constitutional Vitals: Vital Signs - 12hr 06/07/18 06/07/18 06/07/18 05:23 06:23 08:20 Temperature 98 F Pulse Rate 75 Respiratory 18 18 18 Rate Blood Pressure Blood Pressure 157/82 [Right] 06/07/18 06/07/18 06/07/18 08:29 09:37 12:05 Temperature 98.2 F Pulse Rate 75 76 72 Respiratory 16 20 Rate Blood Pressure 157/82 Blood Pressure 184/88 168/85 [Right] 06/07/18 15:00 Temperature Pulse Rate 65 Respiratory Rate Blood Pressure Blood Pressure 183/94 [Right] - Labs CBC & Chem 7: 06/05/18 08:26 06/04/18 13:35
== END 2018-06-07 17:20 | disposition home or self-care (01) | DRG 788 ==
LOC: TRG 14:02 → LD 14:20 → TRG 17:57 → OBSVTOIN 18:28 → OB 06-05 22:16
PROVIDERS: ADMIT Obstetrics & Gynecology; ATTEND Obstetrics & Gynecology
PROC: 10D00Z1 Extraction of Products of Conception, Low, Open Approach (ICD-10-PCS; principal; 2018-06-04)
PROC: 3E0234Z Introduction of Serum, Toxoid and Vaccine into Muscle, Percutaneous Approach (ICD-10-PCS; 2018-06-05)
DX: O11.4 Pre-existing hypertension with pre-eclampsia, complicating childbirth (principal); O34.13 Maternal care for benign tumor of corpus uteri, third trimester; O60.14X0 Preterm labor third trimester with preterm delivery third trimester, not applicable or unspecified; D25.9 Leiomyoma of uterus, unspecified; Z3A.35 35 weeks gestation of pregnancy; Z37.0 Single live birth; Z23 Encounter for immunization
CPT/HCPCS: 36415; 59025; 76815; 76819; 80053; 81001; 83615; 83735; 84550; 85014; 85018; 85025; 86850; 86900; 86901; 87086; 88307; G0378; C9250; J0290; J0360; J0690; J1885; J2274; J2370; J2405; J2590; J2765; J3010; J3475; J7120